=== PATIENT | female | born 1985 | race Caucasian/White ===

== ENCOUNTER 2022-10-06 11:29 | Emergency (ER) | payer OTHER ==
[~2022-10-06] VITALS: Ht 160 cm; Wt 64.0 kg
--- NOTE | 2022-10-06 11:35 | NUR ---
RECEIVED PT 37 YRS FEMALE CAME BY DOUGLAS FROM HOME C/O ALLERGIC REACTION UNKNOW SOURSE GENRALIZED BODY REDNESS AND RASH
--- NOTE | 2022-10-06 11:45 | NUR ---
NO SOB OR DISTRESS
--- NOTE | 2022-10-06 11:50 | NUR ---
SEEN BY DR TURNER
[2022-10-06] MEDS ORDERED: predniSONE 20 MG TABLET ONE (11:56)
[2022-10-06] MEDS ORDERED: predniSONE 50 MG TABLET PO ONE (12:00)
--- NOTE | 2022-10-06 12:41 | NUR ---
HR 138B/MIN DR. TURNER AWARE FROM EPI SQ GIVEN BY [facility]
[2022-10-06] MEDS ORDERED: PRED50TA PO (12:52)
--- NOTE | 2022-10-06 13:15 | NUR ---
IV removed. Catheter intact and site benign. Pressure and 4x4 applied to site. No bleeding noted.
--- NOTE | 2022-10-06 13:17 | NUR ---
Patient discharged to home in stable condition. Written and verbal after care instructions given. Patient verbalizes understanding of instruction.
[2022-10-06 13:30] VITALS: BP 101/60
== END 2022-10-06 13:31 | disposition home or self-care (01) ==
LOC: ER 11:29
DX: R21 Rash and other nonspecific skin eruption (principal); T78.40XA Allergy, unspecified, initial encounter; X58.XXXA Exposure to other specified factors, initial encounter
CPT/HCPCS: 99285; J7512